=== PATIENT | female | born 1950 | race Hispanic/Latino ===

== ENCOUNTER 2017-08-02 19:35 | Emergency (ER) | payer OTHER, MEDICARE ==
[2017-08-02 20:05] LABS: BASOPHILS % (AUTO) 0.6 % (0.0-5.0); EOSINOPHILS % (AUTO) 2.3 % (0.0-8.0); HEMATOCRIT 35.2 % (36-48); MEAN CORPUSCULAR HEMOGLOBIN 32.5 pg (27.0-33.0); MEAN CORPUSCULAR HGB CONC 35.1 g/dL (32.0-36.0); MEAN CORPUSCULAR VOLUME 92.6 fL (79-99); MONOCYTES % (AUTO) 5.8 % (3.0-13.0); NEUTROPHILS % (AUTO) 58.3 % (40.0-77.0); PLATELET COUNT (AUTO) 272 K/uL (130-400); RED CELL DISTRIBUTION WIDTH 12.9 % (11.0-15.5); WHITE BLOOD COUNT (AUTO) 7.7 K/uL (4.8-10.8)
[2017-08-02 20:16] LABS: APPEARANCE,URINE Clear (CLEAR); BILIRUBIN,URINE Negative (NEGATIVE); COLOR,URINE Yellow (YELLOW); GLUCOSE, URINE (UA) Negative (NEGATIVE); KETONES,URINE Negative (NEGATIVE); LEUKOCYTE ESTERASE ,URINE Moderate (NEGATIVE); NITRATE,URINE Negative (NEGATIVE); OCCULT BLOOD,URINE Negative (NEGATIVE); PH,URINE 5.5 (5.0-8.0); PROTEIN,URINE Negative (NEGATIVE); UROBILINOGEN,URINE 0.2 mg/dL (0.2-1.0)
[2017-08-02 20:16] LABS: CREATININE 0.9 mg/dL (0.5-1.5); POTASSIUM 3.5 mmol/L (3.5-5.1)
[2017-08-02 20:22] LABS: BACTERIA,URINE Few /HPF (None Seen); RBC,URINE None Seen /HPF (0-1); SQUAMOUS EPITHELIAL CELL,UR 0-2 /LPF (0-2)
[2017-08-02 20:25] LABS: ALBUMIN 3.6 g/dL (3.5-5.0); BILIRUBIN,TOTAL 0.2 mg/dL (0.2-1.0); TOTAL PROTEIN, SERUM 7.8 g/dL (6.0-8.3)
[2017-08-02 20:33] LABS: INR 0.97 (0.85-1.15); PARTIAL THROMBOPLASTIN TIME 26.1 SEC (26.3-35.5); PROTHROMBIN TIME 10.2 SEC (9.6-11.6)
[2017-08-02 20:45] LABS: CREATINE KINASE MB 0.7 ng/mL (0.5-3.6)
[2017-08-02] MEDS ORDERED: CEFTRIAXONE SODIUM 1 GM ONE (23:58)
[2017-10-04] MEDS ORDERED: SERT100T12 PO (10:34)
[2017-10-04] MEDS ORDERED: BUPR100T13 PO (10:34)
[2017-10-04] MEDS ORDERED: BUSP5TAB3 PO (10:34)
[2017-10-04] MEDS ORDERED: TRAM50TA4 PO (10:34)
[2017-10-04] MEDS ORDERED: FLUT1AER IH (10:34)
[2017-10-04] MEDS ORDERED: OMEP40CA37 PO (10:34)
[2017-10-04] MEDS ORDERED: BACL10TA PO (10:34)
[2017-10-04] MEDS ORDERED: ATOR40TA71 PO (10:34)
[2017-10-04] MEDS ORDERED: METF500T6 PO (10:34)
[2017-10-04] MEDS ORDERED: CITA-107 PO (10:34)
[2017-10-04] MEDS ORDERED: LEVO112T7 PO (10:34)
[2017-10-04] MEDS ORDERED: MONT10TA24 PO (10:34)
[2017-10-04] MEDS ORDERED: ASPI-1181 PO (10:34)
[2017-10-04] MEDS ORDERED: AMLO10TA2 PO (10:34)
[2017-10-04] MEDS ORDERED: OMEG-116 PO (10:34)
== END 2017-08-03 15:16 | disposition short-term general hospital (02) ==
LOC: EDH 19:35
DX: R51 Headache (principal); I10 Essential (primary) hypertension; E11.9 Type 2 diabetes mellitus without complications; E78.5 Hyperlipidemia, unspecified; E07.89 Other specified disorders of thyroid; Z98.890 Other specified postprocedural states; Z86.73 Personal history of transient ischemic attack (TIA), and cerebral infarction without residual deficits
CPT/HCPCS: 36415; 70450; 80053; 81001; 82550; 82553; 82948 ×2; 84484; 85025; 85610; 85730; 87088; 87804 ×2; 93005; 96361; 96374; 99285; J0696

== ENCOUNTER 2017-10-07 05:58 | Day surgery (SDC) | payer OTHER, MEDICARE ==
[2017-10-04 09:50] VITALS: BP 142/75
[2017-10-04 10:07] LABS: CREATININE 0.9 mg/dL (0.5-1.5)
[2017-10-04 10:09] LABS: INR 0.97 (0.85-1.15); PARTIAL THROMBOPLASTIN TIME 25.9 SEC (26.3-35.5); PROTHROMBIN TIME 10.2 SEC (9.6-11.6)
[2017-10-04 10:14] LABS: BASOPHILS % (AUTO) 0.6 % (0.0-5.0); EOSINOPHILS % (AUTO) 1.5 % (0.0-8.0); HEMATOCRIT 37.8 % (36-48); LYMPHOCYTES % (AUTO) 30.8 % (21.0-51.0); MEAN CORPUSCULAR HGB CONC 34.2 g/dL (32.0-36.0); MEAN CORPUSCULAR VOLUME 93.3 fL (79-99); MONOCYTES % (AUTO) 6.5 % (3.0-13.0); NEUTROPHILS % (AUTO) 60.6 % (40.0-77.0); PLATELET COUNT (AUTO) 258 K/uL (130-400); RED BLOOD CELL COUNT(AUTO) 4.05 MIL/uL (4.00-5.50); RED CELL DISTRIBUTION WIDTH 13.4 % (11.0-15.5); WHITE BLOOD COUNT (AUTO) 8.7 K/uL (4.8-10.8)
[~2017-10-07] VITALS: Ht 152.4 cm; Wt 90.6 kg
[2017-10-07] VITALS (9 sets, daily range): BP systolic 106–139; BP diastolic 59–78
[~2017-10-07 05:58] MED LIST: AMLO10TA2 PO; ASPI-1181 PO; ATOR40TA71 PO; BACL10TA PO; BUPR100T13 PO; BUSP5TAB3 PO; CITA-107 PO; FLUT1AER IH; LEVO112T7 PO; METF500T6 PO; MONT10TA24 PO; OMEG-116 PO; OMEP40CA37 PO; SERT100T12 PO; TRAM50TA4 PO
[2017-10-07] MEDS ORDERED: SODIUM CHLORIDE 0.9% 1000ML 1,000 ML IV ONE (06:32)
[2017-10-07] MEDS ORDERED: SYMBICORT IH (07:17)
[2017-10-07] MEDS ORDERED: LIDOCAINE HCL 1% MDV 50ML VIAL ONE (07:54)
[2017-10-07] MEDS ORDERED: CEFAZOLIN 1GM / D5W 50ML 100 ML ONE (07:54)
[2017-10-07] MEDS ORDERED: BUPIVACAINE/PF 0.25% 30ML VIAL IJ ONE (07:54)
[2017-10-07] MEDS ORDERED: CEFAZOLIN 1GM / D5W 50ML 50 ML ONE (08:02)
[2017-10-07] MEDS ORDERED: MORPHINE SULFATE 4 MG/1ML SYG ONE ×2 (08:48→08:52)
[2017-10-07] MEDS ORDERED: MIDAZOLAM HCL 1 MG/ML 2ML VIAL ONE (08:48)
[2017-10-07] MEDS ORDERED: ACETAMINOPHEN 325 MG TAB PO PRN (09:30)
== END 2017-10-07 13:40 | disposition home or self-care (01) ==
LOC: DAH 05:58
PROVIDERS: ATTEND Internal Medicine Cardiovascular Disease
DX: T85.698A Other mechanical complication of other specified internal prosthetic devices, implants and grafts, initial encounter (principal); I10 Essential (primary) hypertension; E78.5 Hyperlipidemia, unspecified; E11.9 Type 2 diabetes mellitus without complications; E03.9 Hypothyroidism, unspecified; G47.00 Insomnia, unspecified; Z86.73 Personal history of transient ischemic attack (TIA), and cerebral infarction without residual deficits; Z98.890 Other specified postprocedural states; I67.89 Other cerebrovascular disease; Z79.84 Long term (current) use of oral hypoglycemic drugs; Z79.899 Other long term (current) drug therapy
CPT/HCPCS: 33284; 36415; 80048; 82948 ×2; 85025; 85610; 85730; 93005; 99152; 99153; A4606; J0690 ×2; J2250; J2270 ×2; J3490 ×2; J7030

== ENCOUNTER → 2021-08-14 | Outpatient (CLI) | payer OTHER, MEDICARE ==
[~2021-08-14] MED LIST changes: +AMLO-258 PO; -AMLO10TA2 PO; -ASPI-1181 PO; +ASPI-1443 PO; +METF-444 PO; -METF500T6 PO; +MONT-39 PO; -MONT10TA24 PO; +OMEP40CA21 PO; -OMEP40CA37 PO; +REGADENOSON 0.4 MG/5 ML PF SYG IVP SCH; +SERT-440 PO; -SERT100T12 PO; +SYMBICORT IH
== END | disposition home or self-care (01) ==
LOC: SHCH 07:38
PROVIDERS: ATTEND Internal Medicine Cardiovascular Disease
DX: R07.9 Chest pain, unspecified (principal)
CPT/HCPCS: 78452; 93017; 96374; A9500 ×2; J2785

== ENCOUNTER 2021-09-01 08:41 | Day surgery (SDC) | payer OTHER, MEDICARE ==
[2021-08-30 10:30] LABS: APPEARANCE,URINE CLEAR (CLEAR); BILIRUBIN,URINE NEGATIVE (NEGATIVE); COLOR,URINE YELLOW (YELLOW); GLUCOSE, URINE (UA) NEGATIVE (NEGATIVE); KETONES,URINE NEGATIVE (NEGATIVE); LEUKOCYTE ESTERASE ,URINE MODERATE (NEGATIVE); NITRATE,URINE NEGATIVE (NEGATIVE); OCCULT BLOOD,URINE TRACE-INTACT (NEGATIVE); PROTEIN,URINE TRACE mg/dL (NEGATIVE); UROBILINOGEN,URINE 0.2 mg/dL (0.2-1.0)
[2021-08-30 10:30] LABS: BASOPHILS % (AUTO) 0.2 % (0.0-5.0); EOSINOPHILS % (AUTO) 1.9 % (0.0-8.0); HEMATOCRIT 32.9 % (36-48); LYMPHOCYTES % (AUTO) 20.2 % (21.0-51.0); MEAN CORPUSCULAR HEMOGLOBIN 30.6 pg (27.0-33.0); MEAN CORPUSCULAR HGB CONC 32.2 g/dL (32.0-36.0); MEAN CORPUSCULAR VOLUME 95.1 fL (79-99); MONOCYTES % (AUTO) 6.3 % (3.0-13.0); NEUTROPHILS % (AUTO) 70.7 % (40.0-77.0); PLATELET COUNT (AUTO) 266 K/uL (130-400); RED BLOOD CELL COUNT(AUTO) 3.46 MIL/uL (4.00-5.50); RED CELL DISTRIBUTION WIDTH 12.8 % (11.0-15.5); WHITE BLOOD COUNT (AUTO) 8.3 K/uL (4.8-10.8)
[2021-08-30 10:35] LABS: BACTERIA,URINE Rare /HPF (None Seen); RBC,URINE 0-1 /HPF (0-1); SQUAMOUS EPITHELIAL CELL,UR Rare /HPF (0-2)
[2021-08-30 10:49] LABS: PROTHROMBIN TIME 10.9 SEC (9.6-11.6)
[2021-08-30 10:50] LABS: PARTIAL THROMBOPLASTIN TIME 28.1 SEC (26.3-35.5)
[2021-08-30 10:51] LABS: POTASSIUM 4.6 mmol/L (3.5-5.1)
[2021-08-30 10:56] LABS: B-TYPE NATRIURETIC PEPTIDE 48 pg/mL (0-100)
[2021-08-31 10:07] VITALS: BP 128/60
[~2021-09-01] VITALS: Ht 152.4 cm; Wt 74.5 kg
[2021-09-01] VITALS (9 sets, daily range): BP systolic 114–166; BP diastolic 51–96
[~2021-09-01 08:41] MED LIST changes: +ALBU8.5H8 IH; -AMLO-258 PO; -BACL10TA PO; -BUPR100T13 PO; +BUPR200T34 PO; -CITA-107 PO; -FLUT1AER IH; +GLUC100019 PO; +LEVO100C4 PO; -LEVO112T7 PO; +LISI2.5T13 PO; +LORA10TA7 PO; +MV-M1TAB20 PO; +NITR0.4T50 SL; -OMEG-116 PO; -REGADENOSON 0.4 MG/5 ML PF SYG IVP SCH; -SYMBICORT IH; -TRAM50TA4 PO; +TRAZ150T79 PO
[2021-09-01] MEDS ORDERED: NITROGLYCERIN 50MG VIAL ONE (14:40)
[2021-09-01] MEDS ORDERED: SODIUM BICARB 50MEQ 50ML VIAL 50 ML ONE (14:40)
[2021-09-01] MEDS ORDERED: IOHEXOL-350 50ML VIAL IV ONE (14:41)
[2021-09-01] MEDS ORDERED: LIDOCAINE HCL 1% MDV 50ML VIAL ONE (14:41)
[2021-09-01] MEDS ORDERED: IOHEXOL 350 MG/ML 100ML INFUS..BTL IV ONE (14:41)
[2021-09-01] MEDS ORDERED: FENTANYL CITRATE PF 50 MCG/1 ML 2ML VIAL ONE (15:04)
[2021-09-01] MEDS ORDERED: MIDAZOLAM HCL 1 MG/ML 2ML VIAL ONE (15:05)
[2021-09-01] MEDS ORDERED: HEPARIN 10,000 UNIT/10ML (1,000 UNIT/ML) VIAL ONE (15:09)
[2021-09-01] MEDS ORDERED: NICARDIPINE 25MG INJ IV ONE (15:10)
[2021-09-01] MEDS ORDERED: 0.9%NACL 1000ML 1,000 ML IV SCH (16:30)
== END 2021-09-01 19:15 | disposition home or self-care (01) ==
LOC: DAH 08:41
PROVIDERS: ATTEND Internal Medicine Cardiovascular Disease
DX: I25.119 Atherosclerotic heart disease of native coronary artery with unspecified angina pectoris (principal); E11.51 Type 2 diabetes mellitus with diabetic peripheral angiopathy without gangrene; I10 Essential (primary) hypertension; E78.5 Hyperlipidemia, unspecified; E03.9 Hypothyroidism, unspecified; G47.30 Sleep apnea, unspecified; Z95.5 Presence of coronary angioplasty implant and graft; Z98.890 Other specified postprocedural states; Z98.891 History of uterine scar from previous surgery; Z79.01 Long term (current) use of anticoagulants; Z79.899 Other long term (current) drug therapy
CPT/HCPCS: 36415; 71045; 80048; 81001; 82948 ×2; 83880; 85025; 85610; 85730; 87077; 87088; 87186; 93005; 93458; A4215; A4216; A4221; A4222; A4223 ×3; A4606; A4663; C1769; C1894; J1644 ×2; J2250; J3010; J3490 ×4; Q9965; Q9967 ×2; 99156; 99157

== ENCOUNTER 2022-04-30 13:05 | Emergency (ER) | payer OTHER, MEDICARE ==
[~2022-04-30] VITALS: Ht 147.3 cm; Wt 74.8 kg
[~2022-04-30 13:05] MED LIST changes: -NITR0.4T50 SL
[2022-04-30] MEDS ORDERED: ONDANSETRON ODT 4MG TAB SL ONE (13:30)
[2022-04-30 14:03] LABS: BASOPHILS % (AUTO) 0.5 % (0.0-5.0); EOSINOPHILS % (AUTO) 1.8 % (0.0-8.0); HEMATOCRIT 31.6 % (36-48); LYMPHOCYTES % (AUTO) 36.4 % (21.0-51.0); MEAN CORPUSCULAR HEMOGLOBIN 32.6 pg (27.0-33.0); MEAN CORPUSCULAR HGB CONC 34.5 g/dL (32.0-36.0); MEAN CORPUSCULAR VOLUME 94.6 fL (79-99); MONOCYTES % (AUTO) 5.4 % (3.0-13.0); NEUTROPHILS % (AUTO) 55.4 % (40.0-77.0); PLATELET COUNT (AUTO) 238 K/uL (130-400); RED BLOOD CELL COUNT(AUTO) 3.34 MIL/uL (4.00-5.50); RED CELL DISTRIBUTION WIDTH 12.2 % (11.0-15.5); WHITE BLOOD COUNT (AUTO) 7.6 K/uL (4.8-10.8)
[2022-04-30 14:20] LABS: CREATININE 1.4 mg/dL (0.5-1.5); POTASSIUM 5.3 mmol/L (3.5-5.1); TOTAL PROTEIN, SERUM 8.1 g/dL (6.0-8.3)
[2022-04-30 18:19] LABS: APPEARANCE,URINE CLOUDY (CLEAR); BILIRUBIN,URINE NEGATIVE (NEGATIVE); COLOR,URINE LIGHT-YELLOW (YELLOW); GLUCOSE, URINE (UA) NEGATIVE (NEGATIVE); KETONES,URINE NEGATIVE (NEGATIVE); LEUKOCYTE ESTERASE ,URINE 250 Leu/uL (NEGATIVE); NITRATE,URINE 1+ (NEGATIVE); OCCULT BLOOD,URINE NEGATIVE (NEGATIVE); PH,URINE 5.5 (5.0-8.0); PROTEIN,URINE NEGATIVE (NEGATIVE); UROBILINOGEN,URINE 0.2 mg/dL (0.2-1.0)
[2022-04-30 18:23] LABS: BACTERIA,URINE RARE /HPF (None Seen); MUCUS,URINE RARE LPF (None Seen); OTHER CASTS, URINE 1 /LPF (None Seen); SQUAMOUS EPITHELIAL CELL,UR RARE /HPF (0-2); WBC,URINE 26-50 /HPF (0-1)
[2022-04-30] MEDS ORDERED: ONDANSETRON 4MG INJ IVP ONE (18:30)
[2022-04-30] MEDS ORDERED: MORPHINE 4 MG SYG IVP ONE (18:30)
[2022-04-30] MEDS ORDERED: 0.9% NACL 500ML IV.SOLN 500 ML IV ONE (18:30)
[2022-04-30 18:57] VITALS: BP 104/64
[2022-04-30] MEDS ORDERED: NITROFURANTOIN MONOHYD/M-CRYST 100 MG CAPSULE PO ONE (20:00)
[2022-04-30] MEDS ORDERED: ONDA4TAB10 PO (20:10)
[2022-04-30] MEDS ORDERED: ACET-66 PO (20:10)
[2022-04-30] MEDS ORDERED: MACR100 PO (20:10)
== END 2022-04-30 20:41 | disposition home or self-care (01) ==
LOC: EDH 13:05
DX: N39.0 Urinary tract infection, site not specified (principal); Z20.822 Contact with and (suspected) exposure to COVID-19; E11.9 Type 2 diabetes mellitus without complications; E78.00 Pure hypercholesterolemia, unspecified; I10 Essential (primary) hypertension; Z88.1 Allergy status to other antibiotic agents; Z79.899 Other long term (current) drug therapy; Z79.84 Long term (current) use of oral hypoglycemic drugs; Z79.82 Long term (current) use of aspirin; Z87.442 Personal history of urinary calculi
CPT/HCPCS: 99285; 74176; 96374; 96361; 87635; 96375; 84484; 80053; 85025; 87077 ×2; 87088; 87186 ×2; 87804 ×2; 81001; 36415; 93005; C9803; J7040; J2405; J2270

== ENCOUNTER → 2023-03-14 | Outpatient (CLI) | payer OTHER, MEDICARE ==
[~2023-03-14] MED LIST changes: +ACET-66 PO; +MACR100 PO; +ONDA4TAB10 PO
== END | disposition home or self-care (01) ==
LOC: RAH 16:33
PROVIDERS: ATTEND Family Medicine
DX: M19.011 Primary osteoarthritis, right shoulder (principal); M25.511 Pain in right shoulder
CPT/HCPCS: 73030

== ENCOUNTER → 2024-04-21 | Outpatient (CLI) | payer OTHER, MEDICARE ==
[~2024-04-21] MED LIST changes: +ONDA-243 PO; -ONDA4TAB10 PO
[2024-04-21 12:19] LABS: BASOPHILS # (AUTO) 0.04 K/uL (0.00-0.20); BASOPHILS % (AUTO) 0.5 % (0.0-5.0); EOSINOPHILS % (AUTO) 2.6 % (0.0-8.0); HEMATOCRIT 35.1 % (36-48); IMMATURE GRANULOCYTE ABSOLUTE 0.05 K/uL (0-1); LYMPHOCYTES # (AUTO) 2.8 K/uL (1.0-4.8); LYMPHOCYTES % (AUTO) 36.9 % (21.0-51.0); MEAN CORPUSCULAR HEMOGLOBIN 31.7 pg (27.0-33.0); MEAN CORPUSCULAR HGB CONC 32.5 g/dL (32.0-36.0); MEAN CORPUSCULAR VOLUME 97.5 fL (79-99); MONOCYTES # (AUTO) 0.4 K/uL (0.1-1.0); MONOCYTES % (AUTO) 5.8 % (3.0-13.0); NEUTROPHILS # (AUTO) 4.1 K/uL (1.8-7.7); NEUTROPHILS % (AUTO) 53.5 % (40.0-77.0); PLATELET COUNT (AUTO) 289 K/uL (130-400); RED CELL DISTRIBUTION WIDTH 12.2 % (11.0-15.5); WHITE BLOOD COUNT (AUTO) 7.7 K/uL (4.8-10.8)
[2024-04-21 12:36] LABS: ALBUMIN 3.8 g/dL (3.5-5.0); BILIRUBIN,TOTAL 0.3 mg/dL (0.2-1.0); CREATININE 1.1 mg/dL (0.5-1.0); POTASSIUM 4.3 mmol/L (3.5-5.1); TOTAL PROTEIN, SERUM 7.7 g/dL (6.0-8.3)
[2024-04-21 13:07] LABS: B-TYPE NATRIURETIC PEPTIDE 59 pg/mL (0-100)
== END | disposition home or self-care (01) ==
LOC: LAB 08:25
PROVIDERS: ATTEND Internal Medicine Cardiovascular Disease
DX: R53.83 Other fatigue (principal); R06.00 Dyspnea, unspecified; M94.0 Chondrocostal junction syndrome [Tietze]; Z79.899 Other long term (current) drug therapy
CPT/HCPCS: 36415; 80053; 80061; 83880; 85025

== ENCOUNTER → 2024-05-21 | Outpatient (CLI) | payer OTHER, MEDICARE | END | disposition home or self-care (01) | LOC: SHCH 09:57 | PROVIDERS: ATTEND Internal Medicine Cardiovascular Disease | DX: R06.00 Dyspnea, unspecified (principal) | CPT/HCPCS: 93306 ==

== ENCOUNTER → 2024-05-22 | Outpatient (CLI) | payer OTHER, MEDICARE ==
--- NOTE | 2024-05-22 11:14 | HMCIMG ---
CHEST 2VWS HISTORY: Dyspnea COMPARISON: 08/31/1999 FINDINGS: Frontal and lateral projections of the chest were obtained. There is no acute pulmonary infiltrates or failure. The heart is not enlarged. Postop changes are seen of cervical spine. Degenerative changes are seen of the thoracolumbar spine. IMPRESSION: 1. No acute pulmonary infiltrates.
== END | disposition home or self-care (01) ==
LOC: RAH 09:57
PROVIDERS: ATTEND Internal Medicine Cardiovascular Disease
DX: R53.83 Other fatigue (principal); R06.00 Dyspnea, unspecified; M47.815 Spondylosis without myelopathy or radiculopathy, thoracolumbar region
CPT/HCPCS: 71046